=== PATIENT | female | born 1935 | race Caucasian/White ===

== ENCOUNTER 2023-11-08 16:09 | Emergency (ER) | payer OTHER, SELFPAY ==
[2023-11-08 16:24] VITALS: BP 145/94
--- NOTE | 2023-11-08 23:15 | ED.GENMED ---
History of Present Illness
General
Chief Complaint: Fall
Source: patient
Exam Limitations: none
Time Seen by Provider: 11/08/23 16:55
Nursing documentation reviewed up to this point in time: agreed with
Travel History
Have you had any contact with someone who has COVID-19?: No
Do you have any symptoms of coronavirus? Fever > 100 degrees, chills, cough, shortness of breath, sore throat, loss of taste or smell, muscle aches, or headache?: No
History of Present Illness
History of Present Illness:
Patient states she fell while hanging wash. Hit face on ground. No LOC. SUstained a small laceration to right eyebrow. 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 SHe was wearing protective sunglasses during fall. Has no
complaints to left eye. No vision concerns.
Past History
Past History
ED Past Medical History: None
Review of Systems
Review of Systems
Allergies reviewed?: Yes
All Other Systems: ROS reviewed and negative except as documented in HPI and ROS
Constitutional: Reports no symptoms
EENT: Reports no symptoms
Respiratory: Reports no symptoms
Cardiac: Reports no symptoms
ABD/GI: Reports no symptoms
: Reports no symptoms
Musculoskeletal: Reports no symptoms
Skin: Reports other (laceration right eyebrow)
Neurological: Reports no symptoms
Psychiatric: Reports no symptoms
Phy Exam
General Physical Exam
General Presentation: well appearing and no apparent distress
General age: appears stated age
General Skin: warm and dry
General Habitus: normal
General Mental: alert
ENT Exam
ENT Exam: EOMI and neck supple
Eye Exam
Eye Exam: PERRL, EOMI, conjunctiva normal and globe normal
Neurological Exam
Neurological Exam: alert, oriented x3, CN II-XII intact, no motor deficits, no sensory deficits, speech normal and normal gait
Dorr Coma Scale
Eye Opening: Spontaneous
Verbal Response: Oriented
Motor Response: Obeys Commands
GCS Total Score: 15
Musculoskeletal Exam
Musculoskeletal Exam: full ROM and neuro vasc intact
Skin Exam
Skin Exam: normal color, warm/dry and no rash
Psychiatric Exam
Psychiatric Exam: normal mood/affect
Course
Vital Signs
Initial and Last Documented VS:
Initial Vital Signs
Temp Pulse Resp BP Pulse Ox
98.4 F 80 17 145/94 99
11/08/23 16:24 11/08/23 16:24 11/08/23 16:24 11/08/23 16:24 11/08/23 16:24
Last Documented Vital Signs
Temp Pulse Resp BP Pulse Ox
98.4 F 80 17 145/94 99
11/08/23 16:24 11/08/23 16:24 11/08/23 16:24 11/08/23 16:24 11/08/23 16:24
Procedures
Laceration Closure
Right Eye brow:
Status of Wound: clean
Description of Wound Edges: sharp
Preparation: cleaned with saline
Anesthesia: 1% Lidocaine
Revision/Debridement: routine- no revision
Wound exploration: explored to base- no FB
Type of Closure: Dermabond-skin glue
*Critical Care Note
Total Time (30-74mins, 75-104mins- exclusive of procedures): Not Applicable
ED Attending Note
-
Portions of this chart may have been created with voice recognition software.� Occasional wrong word or��sound alike� substitutions may have occurred due to the inherent limitations of voice recognition software.
Discharge Plan
Departure
Patient Disposition: Home (Routine Discharge)
Date of Disposition: 11/08/23
Time of Disposition: 17:21
Patient with high blood pressure during this ER visit?: No
Condition: Good
Covid-19: Not Applicable
Discharge Problem:
Head injury
Instructions: Laceration Repair With Glue (DC), Head Injury in Adults (DC)
Referrals:
James Cavazos MD [Family Provider] -
Bienvenido Barney MD [Active] - Tomorrow
Interventions
Interventions:
ED- Fall Risk Assessment Last Done: 11/08/23 17:11
*Nursing Disposition Last Done: 11/08/23 17:27
ED-Musculoskeletal Assessment Last Done: 11/08/23 17:11
ED- Neurological Assessment Last Done: 11/08/23 17:11
ED-Skin Assessment Last Done: 11/08/23 17:11
Discharge Date and Time
Discharge Date/Time: 11/08/23 17:27
Print Language: [place]
Skin Exam
Laceration
Right Eye brow:
Length in cm: 1
Orientation: diagonal
Type of Laceration: simple
Any active bleeding?: no active bleeding
Distal skin color and temperature: normal-warm & good color
Normal distal neurovascular exam: Yes
Range of motion: full
== END 2023-11-08 17:27 | disposition home or self-care (01) ==
LOC: EMR 16:09
PROVIDERS: EMERGENCY PHYSICIAN Emergency Medicine; FAMILY PHYSICIAN Family Medicine
DX: S09.90XA Unspecified injury of head, initial encounter (principal); S01.111A Laceration without foreign body of right eyelid and periocular area, initial encounter; W19.XXXA Unspecified fall, initial encounter; I10 Essential (primary) hypertension
CPT/HCPCS: 99282; 12011